=== PATIENT | male | born 1970 | race Caucasian/White ===

== ENCOUNTER → 2016-11-10 | Outpatient (CLI) | payer OTHER ==
[2016-11-10 08:43] LABS: CHOLESTEROL 143.35 mg/dL (0-200); Direct HDL 56 mg/dL (>40); TRIGLYCERIDES 76 mg/dL (<150)
[2016-11-10 08:54] LABS: DIRECT LDL 69 mg/dL (<100)
[2016-11-11 11:20] LABS: PROSTATE SPECIFIC ANTIGEN 1.6 ng/mL (0.0-4.0); PSA % FREE 31.9 % (.); PSA FREE 0.51 ng/mL
== END ==
LOC: OD 07:25
PROVIDERS: ATTEND Urology
DX: E29.1 Testicular hypofunction (principal); N40.1 Benign prostatic hyperplasia with lower urinary tract symptoms; N52.8 Other male erectile dysfunction; N52.9 Male erectile dysfunction, unspecified; I10 Essential (primary) hypertension; N41.1 Chronic prostatitis
CPT/HCPCS: 36415; 80061; 84154; 84403